=== PATIENT | male | born 1990 | race Caucasian/White ===

== ENCOUNTER 2023-03-08 10:35 | Outpatient (CLI) | payer OTHER, SELFPAY | END 2023-03-08 10:36 | disposition home or self-care (01) | LOC: NFLDREF 03-10 06:23 | PROVIDERS: PCP Physician Assistant Medical; Referring Provider Physician Assistant Medical; Visit Provider Physician Assistant Medical | DX: E78.5 Hyperlipidemia, unspecified (principal); I10 Essential (primary) hypertension; R40.0 Somnolence | CPT/HCPCS: 80053; 80061; 84443 ==

== ENCOUNTER 2023-12-11 17:55 | Outpatient (CLI) | payer OTHER, SELFPAY ==
--- OUTSIDE RECORDS SUMMARY | 2023-12-11 17:56 | XMS_ITS | Clinical Summary ---
Author Organization [facility] Address [address] [place] [address]. [place] [address] Care Team Providers Care Administrative Officer Name Role Phone Unavailable Primary Care Provider Unavailabl e Allergies No known active allergies Medications Medication Sig Dispensed Refills Start Date End Date Status lisinopril (ZESTRIL) 10 MG tablet TAKE 1 TAB BY MOUTH EVERY DAY 02/08/2023 Active modafinil (PROVIGIL) 100 MG tablet TAKE 1 TABLET BY MOUTH EVERY DAY. ++++DUE FOR OFFICE VISIT FOR FURTHER REFILLS++++ 01/24/2023 Active valACYclovir (VALTREX) 1000 mg tablet TAKE 2 TABS ORALLY EVERY 12 HOURS 11/11/2022 Active rosuvastatin (CRESTOR) 5 MG tablet Take 5 mg by mouth daily Active Active Problems No known active problems Social History Tobacco Use Types Packs/Day Years Used Date Smoking Tobacco: Never Smokeless Tobacco: Never Alcohol Use Standard Drinks/Week Comments Yes 0 (1 standard drink = 0.6 oz pur e alcohol) Adolescent Education Answer Date Record ed Getting School Help Needed Not on file 04/01 Sex and Gender Information Value Date Recorded Sex Assigned at Not on file Gender Identity Not on file Sexual Orientation Not on file Last Filed Vital Signs Vital Sign Reading Time Taken Comments Blood Pressure 118/76 02/13/2023 10:49 AM CDT Pulse 67 02/13/2023 10:49 AM CDT Temperature 36.6 ??C (97.9 ??F) 02/13/2023 10:49 AM C DT Respiratory Rate 14 02/13/2023 10:49 AM CDT Oxygen Saturation 98% 02/13/2023 10:49 AM CDT Inhaled Oxygen Concentration - - Weight 100.2 kg (221 lb) 02/13/2023 10:49 AM CDT Height - - Body Mass Index - - Plan of Treatment Health Maintenance Due Date Last Done Comments ADVANCE CARE PLANNING 1988 ANNUAL REVIEW OF HM ORDERS 1988 GLUCOSE 1988 LIPID 1988 YEARLY PREVENTIVE VISIT 1988 HIV SCREENING 11/16/2003 HEPATITIS C SCREENING 2006 HEPATITIS B IMMUNIZATION (1 of 3 - 19+ 3-dose series) 11/16/2007 DTAP/TDAP/TD IMMUNIZATION (1 - Tdap) 2013 COVID-19 Vaccine (1 - 2022-2 4 season) 2023 PHQ-2 (once per calendar year) 2023 INFLUENZA VACCINE (Season Ended) 2024 HPV IMMUNIZATION Aged Out No longer e ligible based on patient's age to complete this topic IPV IMMUNIZATION Aged Out No longer e ligible based on patient's age to complete this topic MENINGITIS IMMUNIZATION Aged Out No l onger eligible based on patient's age to complete this topic Pneumococcal Vaccine: Pediat rics (0 to 5 Years) and At-Risk Patients (6 to 64 Years) Aged Out No longer eligi ble based on patient's age to complete this topic RSV MONOCLONAL ANTIBODY Aged Out No l onger eligible based on patient's age to complete this topic
--- OUTSIDE RECORDS SUMMARY | 2023-12-11 17:56 | XMS_ITS | Referral Summary ---
Author Organization [facility] Address [address] [place] [address]. [place] [address] Care Team Providers Care Gaming Manager Name Role Phone Unavailable Primary Care Provider [...] Mass Index - - Plan of Treatment Not on file
--- NOTE | 2023-12-11 18:15 | CRLHL7_ITS ---
For Patients: As a result of the Century Cures Act, medical imaging exams and procedure reports are released immediately into your electronic medical record. You may view this report before your referring provider. If you have questions, please contact your health care provider. INDICATION: Migraine. TECHNIQUE: Multiplanar multisequence noncontrast MR images of the brain. COMPARISON: None. FINDINGS: The ventricles and sulci are within normal limits for patient age. No mass effect or midline shift. No parenchymal signal abnormalities. No intracranial hemorrhage or pathologic extra-axial fluid collection. No diffusion restriction to suggest acute infarction. The major arterial flow voids at the skull base are preserved. The globes are symmetric. Mild paranasal sinus mucosal thickening. The mastoid air cells are clear. IMPRESSION: Unremarkable noncontrast MRI of the brain. Dictated by Oscar Levy MD @ 12/12/2023 10:45:45 AM (Electronically Signed)
== END 2023-12-11 17:56 | disposition home or self-care (01) ==
LOC: MRI 17:55
PROVIDERS: PCP Physician Assistant Medical; Visit Provider Physician Assistant Medical
DX: G43.909 Migraine, unspecified, not intractable, without status migrainosus (principal)
CPT/HCPCS: 70551

== ENCOUNTER 2024-04-11 08:40 | Outpatient (CLI) | payer OTHER, SELFPAY ==
--- OUTSIDE RECORDS SUMMARY | 2024-04-11 08:42 | XMS_ITS | Clinical Summary ---
Author Organization [facility] Address [address] [place] [address]. [place] [address] Care Team Providers Care Table Tender Name Role Phone Unavailable Primary Care Provider [...] 11/16/2007 DTAP/TDAP/TD IMMUNIZATION (1 - Tdap) 2013 PHQ-2 (once per calendar year) 2023 COVID-19 Vaccine (1 - 2022-2 4 season) 2024 INFLUENZA VACCINE (#1) 2024 HPV IMMUNIZATION Aged Out No longer [...]
--- OUTSIDE RECORDS SUMMARY | 2024-04-11 08:42 | XMS_ITS | Referral Summary ---
Author Organization [facility] Address [address] [place] [address]. [place] [address] Care Team Providers Care Loading Machine Adjuster Name Role Phone Unavailable Primary Care Provider [...]
== END 2024-04-11 08:41 | disposition home or self-care (01) ==
PROVIDERS: PCP Physician Assistant Medical; Visit Provider Physician Assistant Medical
DX: Z00.00 Encounter for general adult medical examination without abnormal findings (principal); E78.5 Hyperlipidemia, unspecified; I10 Essential (primary) hypertension; R40.0 Somnolence
CPT/HCPCS: 80053; 80061; 84443

== ENCOUNTER 2025-05-05 08:13 | Outpatient (CLI) | payer OTHER, SELFPAY | END 2025-05-05 08:14 | disposition home or self-care (01) | LOC: NFLDREF 05-06 18:01 | PROVIDERS: PCP Physician Assistant Medical; Referring Provider Physician Assistant Medical; Visit Provider Physician Assistant Medical | DX: I10 Essential (primary) hypertension (principal); E78.2 Mixed hyperlipidemia | CPT/HCPCS: 80053; 80061; 82565; 82610; 84443 ==